=== PATIENT | female | born 1980 | race Caucasian/White ===

== ENCOUNTER 2022-01-19 23:49 | Inpatient (IN) | payer MEDICAID ==
[~2022-01-19] VITALS: Ht 152.4 cm; Wt 79.4 kg
[2022-01-20] MEDS ORDERED: ASPIRIN 81MG TABLET PO ONE (00:15)
[2022-01-20] MEDS: NITROGLYCERIN 0.4MG TABLET SL SL PRN ×4 (01:27→14:08)
[2022-01-20 01:37] LABS: BASOPHILS % 1.5 % (0.0-2.0); EOSINOPHILS % 2.7 % (0.0-5.0); HEMATOCRIT. 36.6 % (36.0-48.0); HEMOGLOBIN. 12.6 g/dL (12.0-16.0); LYMPHOCYTES % 40.5 % (20.0-50.0); MEAN CORPUSCULAR HEMOGLOBIN 29.8 pg (28.0-32.0); MEAN CORPUSCULAR VOLUME 86.3 fL (81.0-99.0); MEAN PLATELET VOLUME 9.5 fl (7.4-10.4); MONOCYTES % 6.8 % (2.0-8.0); NEUTROPHILS % 48.5 % (40.0-76.0); PLATELET 268 x1000/uL (130-400); RED BLOOD CELL COUNT 4.24 mill/uL (4.2-5.4); RED CELL DISTRIBUTION WIDTH 13.1 % (11.6-14.6)
[2022-01-20 01:44] LABS: CHLORIDE 99 mEq/L (98-107)
[2022-01-20 02:06] LABS: CLARITY URINE CLEAR (CLEAR); COLOR URINE YELLOW (YELLOW); KETONES URINE 1+ (NEGATIVE); LEUKOCYTE ESTERASE URINE NEGATIVE (NEGATIVE); NITRITE URINE NEGATIVE (NEGATIVE); OCCULT BLOOD URINE NEGATIVE (NEGATIVE); PROTEIN URINE NEGATIVE (NEGATIVE); SPECIFIC GRAVITY URINE 1.026 (1.005-1.030); UROBILINOGEN URINE 0.2 E.U./dL (0.2-1.0)
[2022-01-20] MEDS ORDERED: INSULIN REGULAR (HUMULIN R) UD 100 UNITS/ML SYR SUBCUT ONE (03:30)
[2022-01-20] MEDS ORDERED: SODIUM CHLORIDE 0.9% 1,000 ML IV ONE (03:30)
[2022-01-20] MEDS ORDERED: INSULIN REGULAR (HUMULIN R) 300UNITS/3ML VIAL SUBCUT NR (03:30)
[2022-01-20] MEDS ORDERED: IOHEXOL-350 100 ML BOTTLE ONE (03:36)
[2022-01-20 03:43] LABS: D-DIMER 0.58 mg/L FEU (<0.50); INR 0.9; PROTHROMBIN TIME 10.1 sec (9.6-11.0)
[2022-01-20] MEDS ORDERED: MAGNESIUM/ALUMINUM HYDROXIDE/SIMETHICONE 30ML UDC PO PRN (07:15)
[2022-01-20] MEDS ORDERED: ONDANSETRON HCL 4MG/2ML INJ IV PRN (07:15)
[2022-01-20] MEDS ORDERED: GUAIFENESIN 200MG/10ML SUGAR FREE UDC PO PRN (07:15)
[2022-01-20] MEDS ORDERED: KETOROLAC 15MG/ML VIAL IV PRN (07:15)
[2022-01-20] MEDS ORDERED: CLONIDINE 0.1MG TABLET PO PRN (07:15)
[2022-01-20] MEDS ORDERED: DOCUSATE SODIUM 100MG CAPSULE PO PRN (07:15)
[2022-01-20] MEDS ORDERED: DEXTROSE 50% WATER 50ML SYRINGE IV PRN (07:15)
[2022-01-20] MEDS ORDERED: ENOXAPARIN 40MG/0.4ML SYR SUBCUT SCH (07:15)
[2022-01-20] MEDS ORDERED: IPRATROPIUM/ALBUTEROL 0.5-3(2.5)MG/3ML NEB NEB PRN (07:15)
[2022-01-20] MEDS ORDERED: ACETAMINOPHEN 325MG TABLET PO PRN (07:15)
[2022-01-20 08:48] LABS: ETHANOL BLOOD < 10 mg/dL; HDL CHOLESTEROL 45 mg/dL (40-59); LDL CHOLESTEROL 65 mg/dL (5-100)
[2022-01-20] MEDS: ENOXAPARIN 30MG/0.3ML SYR SUBCUT SCH ×2 (09:00→21:40)
[2022-01-20] MEDS: ASPIRIN 325MG EC TABLET PO SCH (09:00)
[2022-01-20] MEDS ORDERED: LISINOPRIL 20MG TABLET PO SCH (09:00)
[2022-01-20] MEDS: FAMOTIDINE 20MG TABLET PO SCH ×2 (09:00→21:40)
[2022-01-20 09:53] LABS: *AMPHETAMINES SCREEN URINE NEGATIVE (NEGATIVE); *BARBITURATES SCREEN URINE NEGATIVE (NEGATIVE); *BENZODIAZEPINES SCREEN URINE NEGATIVE (NEGATIVE); *COCAINE SCREEN URINE NEGATIVE (NEGATIVE); CANNABINOID URINE SCREEN NEGATIVE (NEGATIVE); METHADONE URINE SCREEN NEGATIVE (NEGATIVE); OPIATES URINE SCREEN NEGATIVE (NEGATIVE); PHENCYCLIDINE URINE SCREEN NEGATIVE (NEGATIVE)
[2022-01-20] MEDS: INSULIN GLARGINE 100 UNITS/ML SUBCUT SCH (10:00)
[2022-01-20 11:30] VITALS: BP 115/64
[2022-01-20] MEDS ORDERED: REGADENOSON 0.4 MG/5 ML IV NR (12:45)
[2022-01-20] MEDS: BLOOD SUGAR DIAGNOSTIC STRIP TEST SCH ×3 (12:55→21:41)
[2022-01-20] MEDS: INSULIN LISPRO 100 UNITS/ML SUBCUT SCH ×5 (13:14→21:42)
[2022-01-20] MEDS: ACETAMINOPHEN 325MG TABLET PO PRN (15:38)
[2022-01-20 16:00] VITALS: BP 98/58
[2022-01-20 17:09] LABS: CREATINE KINASE 100 IU/L (26-192); CREATINE KINASE MB FRACTION < 1.0 ng/mL (0.5-3.6)
[2022-01-20 18:00] VITALS: BP 105/65
[2022-01-20 20:00] VITALS: BP 116/58
[2022-01-20] MEDS ORDERED: ATROPINE SULFATE 1MG/10ML SYR IV ONE (21:00)
[2022-01-20] MEDS ORDERED: ZOLPIDEM TARTRATE 5MG TABLET PO PRN (21:00)
[2022-01-21] VITALS: BP 102/54
[2022-01-21 00:20] LABS: CREATINE KINASE 90 IU/L (26-192); CREATINE KINASE MB FRACTION < 1.0 ng/mL (0.5-3.6)
[2022-01-21 04:00] VITALS: BP 101/52
[2022-01-21 06:36] LABS: BASOPHILS % 0.9 % (0.0-2.0); EOSINOPHILS % 2.2 % (0.0-5.0); HEMATOCRIT. 36.6 % (36.0-48.0); HEMOGLOBIN. 12.5 g/dL (12.0-16.0); LYMPHOCYTES % 37.8 % (20.0-50.0); MEAN CORPUSCULAR HEMOGLOBIN 29.4 pg (28.0-32.0); MEAN CORPUSCULAR VOLUME 86.1 fL (81.0-99.0); MONOCYTES % 6.3 % (2.0-8.0); NEUTROPHILS % 52.8 % (40.0-76.0); PLATELET 277 x1000/uL (130-400); RED BLOOD CELL COUNT 4.25 mill/uL (4.2-5.4); RED CELL DISTRIBUTION WIDTH 13.4 % (11.6-14.6)
[2022-01-21 07:06] LABS: CHLORIDE 107 mEq/L (98-107)
[2022-01-21 07:17] LABS: PHOSPHORUS 3.2 mg/dL (2.5-4.9)
[2022-01-21] MEDS: BLOOD SUGAR DIAGNOSTIC STRIP TEST SCH ×4 (07:18→21:36)
[2022-01-21] MEDS: INSULIN LISPRO 100 UNITS/ML SUBCUT SCH ×7 (07:18→22:22)
[2022-01-21] MEDS ORDERED: NITROGLYCERIN 50MCG/ML 10ML VIAL (CATH LAB) IV ONE (07:31)
[2022-01-21] MEDS ORDERED: NICARDIPINE 100MCG/ML 10ML VIAL (CATH LAB) IV ONE (07:31)
[2022-01-21 08:00] VITALS: BP 104/42
[2022-01-21] MEDS: FAMOTIDINE 20MG TABLET PO SCH ×2 (08:08→22:20)
[2022-01-21] MEDS: ASPIRIN 325MG EC TABLET PO SCH (08:09)
[2022-01-21] MEDS: ENOXAPARIN 30MG/0.3ML SYR SUBCUT SCH ×2 (08:09→22:20)
[2022-01-21] MEDS: INSULIN GLARGINE 100 UNITS/ML SUBCUT SCH (09:07)
[2022-01-21] MEDS ORDERED: LIDOCAINE HCL/PF 2% 20MG/ML 5 ML/VIAL ONE (09:50)
[2022-01-21] MEDS ORDERED: MIDAZOLAM HCL 2 MG/2 ML VIAL ONE (09:50)
[2022-01-21] MEDS ORDERED: DIPHENHYDRAMINE 50MG/ML VIAL ONE (09:50)
[2022-01-21] MEDS ORDERED: IODIXANOL 320MG/ML 100 ML BOTTLE IV ONE (09:50)
[2022-01-21] MEDS ORDERED: HEPARIN 1000 UNITS/ML 10ML ONE (09:50)
[2022-01-21] MEDS ORDERED: FENTANYL CITRATE/PF 50MCG/ML 2ML VIAL ONE (09:50)
[2022-01-21] MEDS ORDERED: VERAPAMIL HCL 2.5 MG/1 ML 2ML VIAL IV ONE (09:50)
[2022-01-21] MEDS ORDERED: ATROPINE SULFATE 1MG/10ML SYR IV PRN (12:00)
[2022-01-21 16:00] VITALS: BP 91/40
[2022-01-21 20:00] VITALS: BP 106/48
[2022-01-21] MEDS: ACETAMINOPHEN 325MG TABLET PO PRN (22:47)
[2022-01-22] VITALS: BP 92/44
[2022-01-22 04:00] VITALS: BP 88/46
[2022-01-22] MEDS: BLOOD SUGAR DIAGNOSTIC STRIP TEST SCH ×4 (06:34→21:30)
[2022-01-22 07:00] LABS: BASOPHILS % 0.7 % (0.0-2.0); EOSINOPHILS % 3.1 % (0.0-5.0); HEMATOCRIT. 36.5 % (36.0-48.0); HEMOGLOBIN. 12.4 g/dL (12.0-16.0); LYMPHOCYTES % 41.3 % (20.0-50.0); MEAN CORPUSCULAR HEMOGLOBIN 29.5 pg (28.0-32.0); MEAN CORPUSCULAR VOLUME 87.2 fL (81.0-99.0); MEAN PLATELET VOLUME 9.8 fl (7.4-10.4); MONOCYTES % 5.9 % (2.0-8.0); PLATELET 267 x1000/uL (130-400); RED BLOOD CELL COUNT 4.18 mill/uL (4.2-5.4); RED CELL DISTRIBUTION WIDTH 13.4 % (11.6-14.6)
[2022-01-22 07:09] LABS: CHLORIDE 109 mEq/L (98-107)
[2022-01-22 08:00] VITALS: BP 91/48
[2022-01-22] MEDS ORDERED: POTASSIUM CHLORIDE 20MEQ/PACKET PO NR (08:00)
[2022-01-22] MEDS: FAMOTIDINE 20MG TABLET PO SCH ×2 (08:33→21:56)
[2022-01-22] MEDS: ASPIRIN 325MG EC TABLET PO SCH (08:33)
[2022-01-22] MEDS: ENOXAPARIN 30MG/0.3ML SYR SUBCUT SCH ×2 (08:34→21:56)
[2022-01-22] MEDS: INSULIN LISPRO 100 UNITS/ML SUBCUT SCH ×7 (08:35→21:57)
[2022-01-22] MEDS: INSULIN GLARGINE 100 UNITS/ML SUBCUT SCH (10:57)
[2022-01-22 12:00] VITALS: BP 93/41
[2022-01-22 16:00] VITALS: BP 107/48
[2022-01-22 20:00] VITALS: BP 157/64
[2022-01-23] VITALS: BP 106/46
[2022-01-23 04:00] VITALS: BP 99/51
[2022-01-23] MEDS: BLOOD SUGAR DIAGNOSTIC STRIP TEST SCH ×2 (06:59→12:29)
[2022-01-23 08:00] VITALS: BP 96/47
[2022-01-23] MEDS: INSULIN LISPRO 100 UNITS/ML SUBCUT SCH ×4 (09:06→12:42)
[2022-01-23] MEDS: INSULIN GLARGINE 100 UNITS/ML SUBCUT SCH (09:11)
[2022-01-23] MEDS: ASPIRIN 325MG EC TABLET PO SCH (09:14)
[2022-01-23] MEDS: FAMOTIDINE 20MG TABLET PO SCH (09:14)
[2022-01-23] MEDS: ENOXAPARIN 30MG/0.3ML SYR SUBCUT SCH (09:15)
[2022-01-23 12:00] VITALS: BP 103/46
[2022-01-23 13:55] VITALS: BP 103/46
== END 2022-01-23 14:40 | disposition home or self-care (01) | DRG 191 ==
LOC: ER 23:49 → MICUSO 01-20 03:58 → 7WST 01-20 10:51
PROVIDERS: ADMIT Internal Medicine; ATTEND Psychiatry & Neurology Neurology
PROC: 4A023N7 Measurement of Cardiac Sampling and Pressure, Left Heart, Percutaneous Approach (ICD-10-PCS; principal; 2022-01-21)
PROC: B211YZZ Fluoroscopy of Multiple Coronary Arteries using Other Contrast (ICD-10-PCS; 2022-01-21)
DX: I25.110 Atherosclerotic heart disease of native coronary artery with unstable angina pectoris (principal); E83.51 Hypocalcemia; E87.1 Hypo-osmolality and hyponatremia; E66.9 Obesity, unspecified; Z20.822 Contact with and (suspected) exposure to COVID-19; E11.9 Type 2 diabetes mellitus without complications; R00.1 Bradycardia, unspecified; Z68.34 Body mass index [BMI] 34.0-34.9, adult
CPT/HCPCS: 36415; 71045; 71275; 74174; 80048; 80053; 80061; 80305; 80320; 81003; 82550; 82553; 82962; 83036; 83735; 83880; 83930; 84100; 84484; 85025; 85379; 87426; 93005; 93306; 93458; 93970; 99285; C1769; C1887; C1893; J1200; J1644; J1650; J1815; J2250; J3010; J3490; J7030; J7040; Q9967; G0480

== ENCOUNTER 2022-10-23 14:04 | Emergency (ER) | payer MEDICAID ==
[~2022-10-23] VITALS: Ht 149.9 cm; Wt 71.4 kg
[2022-10-23] MEDS ORDERED: ONDANSETRON HCL 4MG/2ML INJ IV ONE (14:15)
[2022-10-23] MEDS ORDERED: SODIUM CHLORIDE 0.9% 500 ML IV ONE (14:15)
[2022-10-23] MEDS ORDERED: MORPHINE SULFATE 4 MG/ML CPJ (NOT FOR IM USE) IV STA ×2 (14:33→17:52)
[2022-10-23 14:36] LABS: BASOPHILS % 0.8 % (0.0-2.0); EOSINOPHILS % 0.2 % (0.0-5.0); HEMATOCRIT. 40.6 % (36.0-48.0); HEMOGLOBIN. 13.9 g/dL (12.0-16.0); LYMPHOCYTES % 16.6 % (20.0-50.0); MEAN CORPUSCULAR HEMOGLOBIN 30.7 pg (28.0-32.0); MEAN PLATELET VOLUME 8.5 fl (7.4-10.4); MONOCYTES % 2.6 % (2.0-8.0); NEUTROPHILS % 79.8 % (40.0-76.0); PLATELET 327 x1000/uL (130-400); RED BLOOD CELL COUNT 4.51 mill/uL (4.2-5.4); RED CELL DISTRIBUTION WIDTH 13.6 % (11.6-14.6)
[2022-10-23 14:44] LABS: HCG SCREEN NEGATIVE
[2022-10-23 14:45] LABS: CHLORIDE 107 mEq/L (98-107)
[2022-10-23 15:02] LABS: CLARITY URINE TURBID (CLEAR); COLOR URINE YELLOW (YELLOW); KETONES URINE 1+ (NEGATIVE); LEUKOCYTE ESTERASE URINE NEGATIVE (NEGATIVE); NITRITE URINE NEGATIVE (NEGATIVE); OCCULT BLOOD URINE NEGATIVE (NEGATIVE); PROTEIN URINE 1+ (NEGATIVE); SPECIFIC GRAVITY URINE 1.025 (1.005-1.030); UROBILINOGEN URINE 0.2 E.U./dL (0.2-1.0)
[2022-10-23] MEDS ORDERED: MORPHINE SULFATE 4 MG/ML CPJ (NOT FOR IM USE) IV NR (17:52)
[2022-10-23] MEDS ORDERED: ONDANSETRON HCL 4MG/2ML INJ IV STA (17:52)
[2022-10-23] MEDS ORDERED: ONDANSETRON HCL 4MG/2ML INJ IV NR (17:52)
[2022-10-23] MEDS ORDERED: IBUP-2029 MT (20:03)
[2022-10-23] MEDS ORDERED: T3 PO (20:03)
[2022-10-23 20:10] VITALS: BP 133/69
== END 2022-10-23 21:52 | disposition home or self-care (01) ==
LOC: ER 14:04
DX: R10.32 Left lower quadrant pain (principal); R11.0 Nausea; E11.9 Type 2 diabetes mellitus without complications; Z98.890 Other specified postprocedural states; N83.209 Unspecified ovarian cyst, unspecified side
CPT/HCPCS: 36415; 74176; 76830; 76856; 80053; 81003; 83605; 83690; 84703; 85025; 96361; 96374; 96375; 96376; 99285; J2270; J2405; J7040; Z7610